=== PATIENT | female | born 1990 | race Caucasian/White ===

== ENCOUNTER 2016-12-07 15:48 | Outpatient (CLI) | payer OTHER ==
--- NOTE | 2016-12-07 17:12 | DIAGNOSTIC IMAGING REPORT ---
PROCEDURE: US COMPLETE PELVIC W/TRANSVAG INDICATION: DYSMENORRHEA TECHNIQUE: Transabdominal and endovaginal hendrix scale and color Doppler sonographic images of the female pelvis were obtained. COMPARISON: Pelvic ultrasound 07/02/2015 FINDINGS: TRANSABDOMINAL SCANS: Uterus measures 5.2 x 4.7 x 2.8 cm. TRANSVAGINAL SCANS: IUD in satisfactory position in the endometrial canal. Myometrium is unremarkable. Normal endometrium measures 5.6 mm. Left ovary measures 2.2 x 2.3 x 3.2 cm and the right ovary 3.1 x 2.3 x 1.7 cm. Peripheral follicles noted bilaterally. There is vascular flow to both ovaries. No adnexal mass or free fluid in the cul-de-sac. IMPRESSION: 1. IUD in satisfactory position 2. Otherwise negative pelvic ultrasound
== END 2016-12-07 23:00 ==
LOC: US SRH 15:48
DX: N94.6 Dysmenorrhea, unspecified (principal); Z97.5 Presence of (intrauterine) contraceptive device